=== PATIENT | male | born 1965 | race African-American/Black ===

== ENCOUNTER 2021-03-02 18:44 | Observation (INO) | payer SELFPAY ==
[~2021-03-02] VITALS: Ht 190.5 cm; Wt 122.3 kg
[2021-03-02] VITALS (7 sets, daily range): BP systolic 148–175; BP diastolic 100–134; Ht 190.5 cm; Wt 122.3 kg
--- NOTE | ~2021-03-02 | HEMODYNAMI ---
PATIENT:ROME VOGEL MEDICAL RECORD: [id number] : 65 LOCATION:[facility] D.[address] [facility]# [id number] ADMISSION DATE: 03/02/21 Generatedon:112:13 Patient name: ROME VOGEL Patient #: [id number] SSN: [id number] : 1965 Date of study: 03/03/2021 Page: Of Hemodynamic Procedure Report Patient Data Patient Demographics Procedure consent was obtained First Name: ROME Gender: Male Last Name: JASPREET : 1965 Patient #: [id number] Age: 55 year(s) Race: Black SSN: [id number] Additional ID: [id number] Contact details Address: [address] [place] [address] State: [place] City: [place] Zip code: [address] Admission Admission Data Admission Date: 03/02/2021 Admission Time: 21:54 Arrival Date: 03/02/2021 Arrival Time: 21:54 Admit Source: Other Insurance Payor: None Room #: D.2125 [facility] #: [id number] Height (in.): 74.8 BSA: 2.48 (m2) Height (cm.): 190 BMI: 33.8 (kg/m2) Weight (lbs.): 268.97 Weight (kg.): 122 Lab Results Lab Result Date: 03/03/2021 Lab Result Time: 0:00 Biochemistry Name Units Result Min Max BUN mg/dl 13 --(--*-)-- 7 18 Creatinine mg/dl 0.8 --(-*--)-- 0.6 1.3 eGFR ml/min 90 --(*---)-- 90 120 AM CBC Name Units Result Min Max Hemoglobin g/dl 14.9 --(-*--)-- 13.5 17.5 Procedure Procedure Types Cath Procedure Diagnostic Procedure LHC LH w/Coronaries Sedation Charges Moderate Sedation 10-24 minutes Procedure Description Procedure Date Procedure Date: 03/03/2021 Procedure Start Time: 12:01 Procedure End Time: 12:10 Procedure Staff Name Function Mika Chavarria MD Performing Physician Kamilah Del Rio RT Monitor Esteafny Teixeira RN Nurse Rachelle Keane RT Scrub Procedure Data Cath Procedure Fluoroscopy Diagnostic fluoroscopy Total fluoroscopy Time: 2 time: 2 min min Diagnostic fluoroscopy Total fluoroscopy dose: 543 dose: 543 mGy mGy Contrast Material Contrast Material Type Amount (ml) Isovue 300 61 Entry Location Entry Primary Successful Side Size Upsize Upsize Entry Closure Eid ccessful Closure Location (Fr) 1 (Fr) 2 (Fr) Remarks Device Remarks Radial Right 6 Fr Mechanical artery Short Compression Estimated blood loss: 5 ml Diagnostic catheters Device Type Used For End Catheter Placement DIAGNOSTIC [place] 110cm 5 Multi-vessel Fr catheter ([id number]) Angiography Procedure Complications No complications Procedure Medications Medication Administration Route Dosage 0.9% NaCl I.V. 100 ml/hr Heparin Flush Bag added to field 2 bags (1000units/500ml NS) Lidocaine 2% added to field 20 Oxygen NC 3 l/min Versed I.V. 1 mg Fentanyl I.V. 50 mcg Radial Cocktail added to field 1 syringe (Verapamil 2mg/Nitro 400mcg/Heparin 1500units) Versed I.V. 1 mg Fentanyl I.V. 50 mcg Versed I.V. 1 mg Hemodynamics Rest BSA: 2.48 (m2) HGB: 14.9 (g/dl) O2 Consumption: Estimated: 308.59 (ml/min) O2 Co nsumption indexed: Estimated:124.43 (ml/min/m) Heart Rate: 86 (bpm) Pressure Samples Time Site Value (mmHg) Purpose Heart Use Rate(bpm) 12:06 LV 63/-2,1 Snapshot 74 Gradients Valve Time Site Site Mean SEP/DFP Peak To Heart Use 1 2 (mmHg) (sec/min) Peak Rate (mmHg) (bpm) Aortic 12:06 LV AO 70 Snapshots Pre Cath Intra NCS Post Cath Vital Signs Time Heart Resp SPO2 etCO2 NIBP (mmHg) Rhythm Pain Sedation Rate (ipm) (%) (mmHg) Status Level (bpm) 11:49:56 76 18 98 30.9 166/111(132) NSR 0 (11) 10(A) , No pain 11:54:12 89 16 94 32.4 149/111(134) NSR 0 (11) 10(A) , No pain 11:58:26 96 18 94 32.4 153/102(121) NSR 0 (11) 9(A) , No pain 12:02:42 107 15 93 30.9 160/102(139) NSR 0 (11) 9(A) , No pain 12:06:58 86 16 95 28.6 90/57(71) NSR 0 (11) 9(A) , No pain 12:10:08 82 17 95 26.3 78/54(63) NSR 0 (11) 10(A) , No pain Medications Time Medication Route Dose Verified Delivered Reason Notes Effectiveness by by 11:48:59 0.9% NaCl I.V. 100 Mika Estefany used for ml/hr [facility] Roman Teixeira procedure MD CALIX 11:49:08 Heparin Flush added 2 bags Mika Estefany used for Bag to [facility] Roman Teixeira procedure (1000units/500ml field MD CALIX NS) 11:49:16 Lidocaine 2% added 20ml Mika Estefany [facility] MD CAL[facility] 11:49:24 Oxygen NC 3 l/min Mika Estefany for low 02 St Roman alejandro MD, RN 11:54:36 Versed I.V. 1 mg Mika Estefany for sedation St Roman Teixeira MD, RN 11:54:50 Fentanyl I.V. 50 mcg Mika Estefany for sedation St Roman Teixeira MD, RN 11:55:01 Radial Cocktail added 1 Mika Estefany for (Verapamil to syringe AuraRoman Teixeira vasodilation 2mg/Nitro field MD CALIX 400mcg/Heparin 1500units) 11:58:31 Versed I.V. 1 mg Mika Estefany for sedation St Roman Teixeira MD, RN 11:58:49 Fentanyl I.V. 50 mcg Mika Estefany for sedation St Roman Teixeira MD, RN 12:02:04 Versed I.V. 1 mg Mika Estefany for sedation St Roman Teixeira MD, RN Procedure Log Time Note 11:25:16 Informed consent obtained and on chart 11:25:34 Diagnostic Cath Status : Urgent 11:26:50 Admit Source: Other 11:26:54 ACC Patient presents with Unstable Angina CCS Anginal Class 2--Slight limitation of ordinary activity. 11:27:08 Time tracking: Regular hours (M-F 7:00 - 5:00) 11:27:12 Plan of Care:Hemodynamics will remain stable., Cardiac rhythm will remain stable., Comfort level will be maintained., Respiratory function will remain adequate., Patient/ family verbilizes understanding of procedure., Procedure tolerated without complication., Recovers from procedure without complications.. 11::18 Alarms reviewed by R. N. 11::18 Sharps counted by scrub and verified by R.N. 11:27:29 Rachelle Keane RT(R) sent for patient. Start room use. 11:38:35 Procedure Status Urgent Heart Cath (IP). 11:40:18 Patient received from Med II to CCL 2 Alert and oriented. Tansferred to table in Supine position. 11:40:23 Warm blankets applied, and roscoe hugger turned on for patient comfort. 11:40:23 Correct patient and procedure confirmed by team. 11:40:24 ECG and BP/O2 sat monitors applied to patient. 11:48:45 Baseline sample Acquired. 11:48:45 Vital chart was started 11:48:58 Rhythm: sinus tachycardia 11:48:59 0.9% NaCl 100 ml/hr I.V. was administered by Estefany Teixeira RN; used for procedure; Verbal order read back and verified. 11:49:00 Full Disclosure recording started 11:49:05 H&P Date Dictated: 03/03/2021 ER History on chart., New H&P dictated by physician.. 11:49:06 Pre-procedure instructions explained to patient. 11:49:07 Pre-op teaching completed and patient verbalized understanding. 11:49:08 Heparin Flush Bag (1000units/500ml NS) 2 bags added to field was administered by Estefany Teixeira RN; used for procedure; Verbal order read back and verified. 11:49:16 Lidocaine 2% 20ml vial added to field was administered by Estefany Teixeira RN; for local anesthetic; Verbal order read back and verified. 11:49:18 Family in patients room. 11:49:20 Patient NPO since Midnight. 11:49:22 Is the patient allergic to Iodine/contrast media? No. 11:49:23 Was the patient premedicated? Yes 11:49:24 Oxygen 3 l/min NC was administered by Estefany Teixeira RN; for low 02 sats; Verbal order read back and verified. 11:49:24 Is patient on blood thinner?No 11:49:25 Patient diabetic? No. 11:49:27 Previous problem with sedation/anesthesia? No ? 11:49:29 Snore? Yes 11:49:30 Sleep apnea? No 11:49:31 Deviated septum? No 11:49:32 Opens mouth fully? Yes 11:49:32 Sticks out tongue? Yes 11:49:35 Airway obstruction? No ? 11:49:39 Dentures? Yes in tight 11:50:06 Pre procedure: right dorsailis pedis pulse 2+ Normal; easily identifiable; not easily obliterated 11:50:08 Pre procedure: left dorsailis pedis pulse 2+ Normal; easily identifiable; not easily obliterated 11:50:10 Patient pain scale 0/10 ?. 11:50:13 Modified Jesse's test Radial < 7 seconds 11:50:17 Lab results completed and on chart. 11:50:23 Stress Test: no; N/A ? 11:50:26 Physician arrived 11:50:27 --------ALL STOP TIME OUT------ 11:50:27 Final Timeout: patient, procedure, and site verified with staff and physician. All members of the team are in agreement. 11:50:29 Right Radial & Right Groin site verified by team. 11:50:33 Fire Safety Assessment: A--An alcohol-based skin anteseptic being used preoperatively., C--Open oxygen or nitrous oxide is being used., D--An ESU, laser, or fiber-optic light is being used. 11:50:36 Physical assessment completed. ASA score P 2 - A patient with mild systemic disease as per Mika Chavarria MD. 11:51:03 1) 90+ Normal kidney functon but urine findings or structural abnormalities or genetic trait point to kidney disease. 11:51:06 Maximum allowable contrast dose (3.7 X eGFR X 0.75)250 ml. 11:52:03 Sedation plan: IV Moderate Sedation Medication:Versed, Fentanyl 11:52:08 Use device set Radial Dx or PCI 11:52:10 ACIST Syringe (04254) opened to sterile field. 11:52:10 Medline Cath Pack ([id number]) opened to sterile field. 11:52:10 Bag Decanter () opened to sterile field. 11:52:10 ACIST Hand Control (12236) opened to sterile field. 11:52:11 ACIST Manifold (93824) opened to sterile field. 11:52:11 Tegaderm 4 x 4 (1626W) opened to sterile field. 11:52:11 MBrace Wrist Support ([id number]) opened to sterile field. 11:52:14 EMERALD Guide Wire (210-120) opened to sterile field. 11:52:15 SHEATH 6FR RAIN (5579149) opened to sterile field. 11:54:36 Versed 1 mg I.V. was administered by Estefany Teixeira RN; for sedation; Verbal order read back and verified. 11:54:36 Arrival Date: 03/02/2021 9:54:00 PM 11:54:50 Fentanyl 50 mcg I.V. was administered by Estefany Teixeira RN; for sedation; Verbal order read back and verified. 11:54:52 Insurance Payor : None 11:54:59 Patient Height : 74.8 inches 11:55:01 Radial Cocktail (Verapamil 2mg/Nitro 400mcg/Heparin 1500units) 1 syringe added to field was administered by Estefany Teixeira RN; for vasodilation; Verbal order read back and verified. 11:55:02 Patient Weight : 268.97 lbs 11:56:13 Lab Result : eGFR AM 90 ml/min 11:56:13 Lab Result : Hemoglobin 14.9 g/dl 11:56:13 Lab Result : BUN 13 mg/dl 11:56:13 Lab Result : Creatinine 0.8 mg/dl 11:58:31 Versed 1 mg I.V. was administered by Estefany Teixeira RN; for sedation; Verbal order read back and verified. 11:58:49 Fentanyl 50 mcg I.V. was administered by Estefany Teixeira RN; for sedation; Verbal order read back and verified. 12:00:59 Procedure started. 12:01:03 Local anesthetic to right radial artery with Lidocaine 2% by Mika Chavarria MD.INITIAL ACCESS ONLY 12:01:11 A 6 Fr Short sheath was inserted into the Right Radial artery 12:01:16 Zero performed for pressure channel P1 12:01:21 Zero performed for pressure channel P1 12:01:46 A DIAGNOSTIC [place] 110cm 5 Fr catheter (165704) was advanced over the wire and used for Multi-vessel Angiography. 12:02:04 Versed 1 mg I.V. was administered by Estefany Teixeira RN; for sedation; Verbal order read back and verified. 12:03:58 RCA angiography performed. 12:04:01 Injector settings: Ml/sec: 3, Volume: 6, 12:04:19 LCA angiography performed. 12:04:22 Injector settings: Ml/sec: 3, Volume: 6, 12:06:11 LV hemodynamics recorded. 12:06:12 LV gram done using FOX 12:06:14 Injector settings: Ml/sec: 5, Volume: 15, 12:06:24 EF : 55 % 12:06:40 Catheter removed. 12:06:42 ZEPHYR LARGE TR BAND (887156) opened to sterile field. 12:07:08 Sheath removed intact; hemostasis achieved with Mechanical Compression to the Right Radial artery. 12:07:12 Procedure ended.(Physican Out) 12:08:32 Fluoroscopy time 02.00 minutes. 12:08:36 Fluoroscopy dose: 543 mGy 12:08:36 Flurop Dose total: 543 12:08:41 Dose Area Product 44263 mGy/cm. 12:08:57 Contrast amount:Isovue 300 61ml. 12:08:59 Maximum allowable dose exceeded? No. 12:09:00 Sharps counted by scrub and verified by R.N. 12:09:02 [place] band inflated with 10cc of air. 12:09:04 Insertion/operative site no bleeding no hematoma. 12:09:12 Post right radial artery:stable 12:09:13 Post Procedure Pulses reassessed and unchanged 12:09:16 Post procedure rhythm: unchanged. 12:09:18 Estimated blood loss: 5 ml 12::22 Post procedure instruction explained to patient.Patient verbalizes understanding. 12:09:22 Patient needs reinforcement of post procedure teaching. 12:10:02 Procedure type changed to Cath procedure, Diagnostic procedure, LHC, LHC w/Coronaries, Sedation Charges, Moderate Sedation 10-24 minutes 12:10:03 Procedure and supply charges have been captured, reviewed, submitted and are correct. 12:10:07 Procedure Complication : No complications 12:10:09 Vital chart was stopped 12:10:12 [facility] Findings: mild to moderate CAD (<70%) 12:10:13 Operative report dictated upon procedure completion. 12:10:14 See physician's report for complete and final results. 12:10:16 Report given to [facility]. 12:10:19 Patient transfered to [facility] with Stretcher. 12:10:20 Procedure ended. 12:10:20 Full Disclosure recording stopped 12:10:26 End room use (Document Last) 12:12:17 End room use (Document Last) 12:13:22 End room use (Document Last) Device Usage Item Name Manufacture Quantity Catalog Hospital Part Current Minima l Lot# / Number Charge Number Stock Stock Serial# Code ACIST Acist 1 71592 262458 707268 901938 20 Syringe Medical (87401) Systems Inc Medline Medline 1 [id number] 033310 95808 463724 5 Cath Pack ([id number]) Bag Microtek 1 585345 24344 246247 5 Decanter Medical Inc. () ACIST Hand Acist 1 37626 134893 446580 727856 5 Control Medical (10589) Systems Inc ACIST Acist 1 92072 164723 398742 052915 5 Manifold Medical (62417) Systems Inc Tegaderm 4 3M 1 1626W 479282 982632 087606 5 x 4 (1626W) MBrace Advanced 1 140-0250-00 930954 59465 485792 5 Wrist Vascular Support Dynamics (450094807) EMERALD Cardinal 1 502-455 410262 856009 520666 5 Guide Wire Health (502-455) SHEATH 6FR Cardinal 1 9382039 245831 4900443 185762 5 RAIN Health (0841842) DIAGNOSTIC Terumo 1 40-5013 859435 332682 788924 5 [place] 110cm 5 Fr catheter (631518) ZEPHYR Cardinal 1 559103 162309 1804556 593037 5 LARGE TR Health BAND (218138) Signature Audit [place] Stage Time Signature Unsigned Intra-Procedure 03/03/2021 Kamilah Del Rio 12:12:17 PM RT(R) Intra-Procedure 03/03/2021 Estefany 12:13:22 PM Puneet RN Intra-Procedure 03/03/[address] 12:13:43 PM Roman MD Signatures Performing Physician : Signature : Mika Chavarria MD Date : Time : Monitor : Kamilah Quang RT Signature : Date : Time : Nurse : Estefany Signature : Puneet RN Date : Time : [facility] [address] [place] [address]
--- NOTE | ~2021-03-02 | CN ---
PATIENT NAME:ROME VOGEL MEDICAL RECORD: [id number] : 65 LOCATION:D. D.2125 ADMIT DATE: 03/02/21 ACCOUNT: [id number] CONSULTING PHYSICIAN: ISAÍAS PALOMINO MD REFERRING PHYSICIAN: MUSTAPHA CASTRO MD DATE OF CONSULTATION: 03/03/2021 HISTORY OF PRESENT ILLNESS: A 55-year-old gentleman with no known history of coronary artery disease, symptomatology began approximately 2 weeks ago. He was having chest heaviness and tightness radiating to the jaw. Initially saw a dentist, told him that he had an infected tooth, also hypertensive at times. Symptomatology waxed and waned. That was myopathic type symptomatology including some mild edema, orthopnea type symptomatology as well as chest heaviness and exertion, had onset of symptoms at his local medical doctor was transferred here, found to be quite hypertensive and abnormal EKG. We are asked to see him concerning his cardiovascular status. Does have family history of coronary artery disease, nonsmoker. PAST MEDICAL HISTORY: Really no significant past medical history to his knowledge. ALLERGIES: None known. MEDICATIONS: None chronically. SOCIAL HISTORY: Nonsmoker, social drinker. Easily takes care of all his ADLs. Does try to walk on a regular basis. PHYSICAL EXAMINATION: VITAL SIGNS: Blood pressure 169/109, pulse 82 and regular. HEENT: Normocephalic, atraumatic. NECK: No bruits noted. HEART: Regular. S4 gallop is noted. LUNGS: Decreased breath sounds. Few rales on both bases. ABDOMEN: Soft, nontender. EXTREMITIES: Pulses 2+. There is trace edema. IMPRESSION: Acute coronary syndrome. Certainly, given hypertension may be early hypertensive with myopathy versus acute coronary syndrome versus demand ischemia. PLAN: For angiography, intervention based on the above. TRANSINT:[id number] Voice Confirmation ID: [id number] DOCUMENT ID: [id number] ISAÍAS PALOMINO MD CC: [id number] DICTATION DATE: 03/03/21853 UNPAID INTERN: 03/03/[address] [facility] [address] [id number]
--- NOTE | ~2021-03-02 | OP ---
PATIENT NAME: ROME VOGEL MEDICAL RECORD: [id number] :65 LOCATION:D.M2 D.2125 ADMISSION DATE:03/02/21 SURGEON: ISAÍAS PALOMINO MD DATE OF OPERATION: 03/03/2021 PROCEDURE: Left heart catheterization, selective coronary angiography, right radial approach. CATHETERS: Radial sheath. [place] catheter. The procedure was well tolerated. The patient returned to [facility]. Sheath was removed. TR band was placed. FINDINGS: Left ventriculography in 30-degree FOX view: Normal wall motion, normal systolic function. CORONARY ANATOMY: Left main: Left main is free of disease. LAD: Free of disease in the diagonal system. Circumflex: Free of disease in the marginal system. Right coronary artery: Dominant artery, gives rise to PDA, free of disease. IMPRESSION: Normal LV systolic function. Normal coronary anatomy. I suspect more demand type symptomatology secondary to his hypertension. PLAN: We will add HCTZ to the underlying calcium channel blockade. Further recommendations based on the above. TRANSINT:[id number] Voice Confirmation ID: [id number] DOCUMENT ID: [id number] ISAÍAS PALOMINO MD CC: [id number] DICTATION DATE: 03/03/21 1210 CROZER OPERATOR: 03/03/21 1750 DIS IN 03/03/21 [facility] [address] [id number]
[2021-03-02 20:37] LABS: INR 1.16 (0.85-1.17); PROTIME 13.7 SECONDS (11.6-15.0)
[2021-03-02 20:48] LABS: BASOPHILS 0.6 % (0-2); EOSINOPHILS 5.3 % (0-7); HEMATOCRIT 43.5 % (42.0-54.0); HEMOGLOBIN 14.9 g/dL (13.5-17.5); IMMATURE GRANULOCYTES 0.2 % (0-5); LYMPHOCYTE ABS# 1.46 10x3/uL (1.32-3.57); LYMPHOCYTES 28.6 % (15-50); MCH 29.2 pg (26.0-34.0); MCHC 34.3 g/dL (31.0-37.0); MCV 85.1 fL (80.0-100.0); MEAN PLATELET VOLUME 10.9 fL (7.4-10.4); MONOCYTES 7.4 % (2-11); NEUTROPHIL ABS# 2.96 10x3/uL (1.78-5.38); NEUTROPHILS 57.9 % (40-80); PLATELET COUNT 193 10x3/uL (130-400); RBC 5.11 10x6/uL (4.20-6.10); WBC 5.1 10x3/uL (4.8-10.8)
[2021-03-02 20:53] LABS: CALC OSMOLALITY 275 mosm/kg (275-300); CALCIUM 9.4 mg/dL (8.5-10.1); CARBON DIOXIDE 25.4 mmol/L (21.0-32.0); CHLORIDE - SERUM 103 mmol/L (98-107); CREATININE - SERUM 0.8 mg/dL (0.6-1.3); GLUCOSE 106 mg/dL (74-106); POTASSIUM - SERUM 3.8 mmol/L (3.5-5.1); SODIUM 138 mmol/L (136-145); UREA NITROGEN 13 mg/dL (7-18); eGFR NON AFRICAN AMERICAN > 90 mL/min (90-120)
[2021-03-02 21:08] LABS: ALBUMIN 3.8 g/dL (3.4-5.0); ALKALINE PHOSPHATASE 160 U/L (30-120); ALT (SGPT) 42 U/L (10-68); BILIRUBIN - TOTAL 0.87 mg/dL (0.2-1.3); CKMB 2.1 U/L (0.0-3.6); CREATINE KINASE 218 UL (21-232); MAGNESIUM - SERUM 2.1 mg/dL (1.8-2.4); PROTEIN - SERUM 7.8 g/dL (6.4-8.2); TROPONIN-I < 0.017 ng/mL (0.000-0.060)
[2021-03-02] MEDS ORDERED: AMOXICILLIN875 MG PO (22:43)
[2021-03-02] MEDS ORDERED: NORVASC5 MG PO (22:43)
[2021-03-03 01:34] VITALS: BP 167/100
[2021-03-03 02:30] LABS: BASOPHILS 0.6 % (0-2); EOSINOPHILS 8.6 % (0-7); HEMATOCRIT 42.8 % (42.0-54.0); HEMOGLOBIN 14.6 g/dL (13.5-17.5); IMMATURE GRANULOCYTES 0.2 % (0-5); LYMPHOCYTE ABS# 1.55 10x3/uL (1.32-3.57); LYMPHOCYTES 32.4 % (15-50); MCHC 34.1 g/dL (31.0-37.0); MCV 85.1 fL (80.0-100.0); MEAN PLATELET VOLUME 10.7 fL (7.4-10.4); MONOCYTES 5.9 % (2-11); NEUTROPHILS 52.3 % (40-80); PLATELET COUNT 197 10x3/uL (130-400); RBC 5.03 10x6/uL (4.20-6.10); RDW 13.2 % (11.5-14.5); WBC 4.8 10x3/uL (4.8-10.8)
[2021-03-03 03:04] LABS: ALBUMIN 3.5 g/dL (3.4-5.0); ALKALINE PHOSPHATASE 149 U/L (30-120); ALT (SGPT) 41 U/L (10-68); BILIRUBIN - TOTAL 0.89 mg/dL (0.2-1.3); CALC OSMOLALITY 278 mosm/kg (275-300); CALCIUM 9.2 mg/dL (8.5-10.1); CARBON DIOXIDE 26.8 mmol/L (21.0-32.0); CHLORIDE - SERUM 104 mmol/L (98-107); CKMB 1.9 U/L (0.0-3.6); CREATINE KINASE 182 UL (21-232); CREATININE - SERUM 0.8 mg/dL (0.6-1.3); GLUCOSE 102 mg/dL (74-106); MAGNESIUM - SERUM 2.1 mg/dL (1.8-2.4); POTASSIUM - SERUM 3.8 mmol/L (3.5-5.1); PROTEIN - SERUM 7.3 g/dL (6.4-8.2); SODIUM 140 mmol/L (136-145); TROPONIN-I < 0.017 ng/mL (0.000-0.060); UREA NITROGEN 13 mg/dL (7-18); eGFR NON AFRICAN AMERICAN > 90 mL/min (90-120)
[2021-03-03 05:24] VITALS: BP 145/99
[2021-03-03 06:46] LABS: BILIRUBIN NEGATIVE (NEGATIVE); KETONE NEGATIVE (NEGATIVE); NITRITE NEGATIVE (NEGATIVE); UROBILINOGEN NORMAL mg/dL (< 2)
[2021-03-03 06:51] LABS: UDS - AMPHET NEGATIVE QUAL (NEGATIVE); UDS - BARB NEGATIVE QUAL (NEGATIVE); UDS - BENZO NEGATIVE QUAL (NEGATIVE); UDS - COCAINE NEGATIVE QUAL (NEGATIVE); UDS - OPIATE NEGATIVE QUAL (NEGATIVE); UDS - PCP NEGATIVE QUAL (NEGATIVE); UDS - THC POSITIVE QUAL (NEGATIVE)
--- NOTE | 2021-03-03 06:56 | NUR ---
BP 147/110, HYDRALIZINE 10 MG GIVEN SLOW IVP.
[2021-03-03 08:00] VITALS: BP 163/109
[2021-03-03 09:37] LABS: CHOL - HDL RATIO 4.3 ratio (2.3-4.9); LDL-HDL RATIO 2.8 ratio (1.5-3.5)
--- NOTE | 2021-03-03 11:30 | NUR ---
PRE-OPS GIVEN. TO BINGO CASHIER BY BED.
--- NOTE | 2021-03-03 12:39 | NUR ---
BACK FROM RATE QUOTING OPERATOR. VS WNL. RIGHT WRIST STABLE WITH TR BAND INTACT. WILL MONITOR.
--- NOTE | 2021-03-03 15:02 | NUR ---
TR BAND DCD WITHOUT BLEEDING OR HEMATOMA NOTED. IV AND TELEMETRY DCD. DC PLANS GIVEN. UNDERSTANDING VOICED. ESCORTED TO CAR BY W/C.
== END 2021-03-03 15:02 | disposition home or self-care (01) ==
LOC: D.ER 18:44 → OBSVTIME 21:54 → D.M2 21:54
PROVIDERS: Family Medicine; Internal Medicine Interventional Cardiology; ADMIT Emergency Medicine; ATTEND Emergency Medicine
DX: R07.9 Chest pain, unspecified (principal); I24.9 Acute ischemic heart disease, unspecified; I10 Essential (primary) hypertension; R06.01 Orthopnea